=== PATIENT | female | born 1955 | race Caucasian/White ===

== ENCOUNTER → 2023-06-01 11:18 | Outpatient (REF) | payer OTHER, SELFPAY | LOC: HWRAD 11:18 | PROVIDERS: ATTENDING PHYSICIAN Obstetrics & Gynecology Gynecology; FAMILY PHYSICIAN Physician Assistant Medical | DX: N94.9 Unspecified condition associated with female genital organs and menstrual cycle (principal); Z78.0 Asymptomatic menopausal state | CPT/HCPCS: 76830; 76856; 77080 ==

== ENCOUNTER → 2024-07-27 11:56 | Outpatient (REF) | payer OTHER, SELFPAY | LOC: HWWDC 11:56 | PROVIDERS: ATTENDING PHYSICIAN Obstetrics & Gynecology Gynecology; FAMILY PHYSICIAN Physician Assistant Medical | DX: Z12.31 Encounter for screening mammogram for malignant neoplasm of breast (principal) | CPT/HCPCS: 77063; 77067 ==